=== PATIENT | female | born 1950 | race Caucasian/White ===

== ENCOUNTER 2024-10-13 13:34 | Observation (INO) ==
[2024-10-13] MEDS: 0.9 % SODIUM CHLORIDE 1000 ML 1,000 ML IV ONE (14:13)
[2024-10-13] MEDS: MECLIZINE HCL 25 MG TABLET PO ONE (14:13)
[2024-10-13 14:24] LABS: Basophils #(Absolute) Auto 0.0 (0.0-0.1); Basophils%(Percent) Auto 0.5 (0.1-0.85); Eosinophils#(Absolute)Auto 0.1 (0.0-0.2); Eosinophils%(Percent) Auto 0.9 % (0.4-2.8); Granulocytes % - Auto 70.6 % (47.8-71.3); Granulocytes#(Absolute)- Auto 4.3 (2.3-6.0); Hematocrit 42.8 % (35.9-46.7); Mean Corpuscular Volume 90.9 fl (81.0-93.7); Monocytes #(Absolute)- Auto 0.4 (1.1-3.1); Monocytes %(Percent)- Auto 5.7 % (3.6-9.8); Platelet Count 204 K/uL (152-353); White Blood Count 6.1 K/uL (4.3-9.3)
[2024-10-13 14:30] LABS: PH BODY FLUID EXCP BLOOD 5.0 (5 - 9)
[2024-10-13 14:36] LABS: Carbon Dioxide 29.0 mmol/L (21-32); Glucose 86.0 mg/dL (70-110); Potassium 4.0 mmol/L (3.6-5.2); Sodium 138.0 mmol/L (136-145)
--- NOTE | 2024-10-13 16:07 | Emergency Department Note ---
HPI - Dizziness General Chief Complaint: Syncope Stated Complaint: Passed Out Time Seen by Provider: 10/13/24 14:01 Source: patient and family Mode of arrival: walk-in History of Present Illness HPI Narrative: 74-year-old female patient presents conscious alert and oriented x 4 to the ER complaining of a syncopal episode that happened today. Patient states she bent over to check on her grandbaby when she stood up she had a syncopal episode causing her to fall to the ground. Denies any injury or trauma from the syncopal episode. Denies any chest pain or shortness of breath. Patient states that this is actually the second time she has had a syncopal episode in the past week. Sunday she had a syncopal episode after being outside in the heat for most of the day watching a ball game. Patient denies any injury or trauma for that either MD elicited complaint: Reports dizziness and other (syncope) Pertinent past history: Reports syncope; Denies BPPV, inner ear problems, stroke or recent head injury Onset (ago): week(s) (1) Timing: Reports sudden onset Severity: mild Description: Reports lightheadedness Context: Denies change in medication or change in body position History of similar symptoms: Yes Exacerbating factors: Reports movement/ambulation Relieving factors: Reports rest Associated symptoms: Reports denies other symptoms Related Data Allergies Allergy/AdvReac Type Severity Reaction Status Date / Time codeine Allergy Unknown Verified 10/13/24 13:47 Review of Systems Status of ROS 10 or more systems reviewed and unremark able except as noted in history and below Neurological Reports: dizziness and other (syncope) PFSH PFSH Medical History History of hiatal hernia Arthritis Anxiety HTN (hypertension) High cholesterol Surgical History History of cholecystectomy Social History Smoking status: never smoker Within the past year, how often did you have a drink containing alcohol: never Score interpretation: A score less than 3 is consistent with normal alcohol consumption. Non-prescribed substance use: denies use Exam Constitutional: normal general appearance, no apparent distress and average body habitus Vital Signs - 24 hr 10/13/24 13:38 10/13/24 13:38 10/13/24 14:09 Temperature 98.7 F Pulse Rate 70 Pulse Rate [orthos tatic lying] 75 Pulse Rate [orthos tatic sitting] 70 Pulse Rate [orthos tatic standing] 82 Respiratory Rate 18 Blood Pressure 124/77 Blood Pressure [or thostatic lying] 120/75 Blood Pressure [or thostatic sitting] 124/77 Blood Pressure [or thostatic standing Right Arm] 122/79 122/79 Pulse Oximetry Oxygen Delivery Me thod Room Air 10/13/24 14:25 10/13/24 14:45 10/13/24 15:00 Temperature Pulse Rate 61 61 64 Pulse Rate [orthos tatic lying] Pulse Rate [orthos tatic sitting] Pulse Rate [orthos tatic standing] Respiratory Rate 18 18 18 Blood Pressure 119/93 127/70 128/80 Blood Pressure [or thostatic lying] Blood Pressure [or thostatic sitting] Blood Pressure [or thostatic standing Right Arm] Pulse Oximetry 98 98 98 Oxygen Delivery Me thod Room Air Room Air Room Air 10/13/24 15:30 Temperature Pulse Rate 58 L Pulse Rate [orthos tatic lying] Pulse Rate [orthos tatic sitting] Pulse Rate [orthos tatic standing] Respiratory Rate 18 Blood Pressure 134/66 Blood Pressure [or thostatic lying] Blood Pressure [or thostatic sitting] Blood Pressure [or thostatic standing Right Arm] Pulse Oximetry 98 Oxygen Delivery Me thod Room Air HENMT: normocephalic and head/scalp atraumatic Eyes: PERRL Neck/C-Spine: visual inspection normal, trachea midline and cervical spine nontender Lymph: no lymphadenopathy noted and no lymphedema noted Chest: inspection of chest normal and palpation of chest normal Respiratory: breath sounds equal bilaterally, normal respiratory effort and clear to auscultation bilaterally Cardiovascular: normal heart rate noted and regular rhythm noted Gastrointestinal: abdomen normal to inspection Genitourinary: no CVA tenderness Back/Pelvis: spine normal to inspection Extremities: normal to inspection Neurology: fuel manager II-XII intact and no movement abnormality noted Psychiatry: mental status grossly normal and oriented x3 Skin: skin color normal Course Course Hospital Course: Patient was evaluated in the ER found to be in no acute distress breathsounds are clear and equal bilaterally. Abdomen soft and nontender on palpation. Normoactive bowel sounds. No rigidity or distention is noted. EKG shows a normal sinus rhythm. Heart rate of 62. No ectopy noted. CT head shows no acute intercranial findings. [place]-Hallpike maneuver is negative. NIH stroke scale is negative. Orthostatics were negative. Patient was given 1 L normal saline IVP. Examination is unremarkable. I am concerned that the patient's had 2 syncopal episodes in the past week. I discussed with the patient the desire to admit for further evaluation and treatment which family and patient have agreed. I have consulted with Renae Willett nurse practitioner who is agreed to admit the patient for further evaluation and treatment. Vital Signs Vital signs: Vital Signs Temperature 98.7 F 10/13/24 13:38 Pulse Rate 70 10/13/24 13:38 Respiratory Rate 18 10/13/24 13:38 Blood Pressure 124/77 10/13/24 13:38 Oxygen Delivery Method Room Air 10/13/24 13:38 Temperature 98.7 F 10/13/24 13:38 Pulse Rate 58 L 10/13/24 15:30 Respiratory Rate 18 10/13/24 15:30 Blood Pressure 134/66 10/13/24 15:30 Pulse Oximetry 98 10/13/24 15:30 Oxygen Delivery Method Room Air 10/13/24 15:30 Discharge Plan Discharge Patient Disposition: Admitted As Observation Condition: Stable Clinical Impression: Syncope Time of Disposition: 16:06
--- NOTE | 2024-10-13 16:30 | History & Physical Report ---
H&P: HPI History of Present Illness Chief complaint: Passed Out Narrative: Ms. Don was admitted on 10/13/24 from the ED after syncopal episode at home. She states that she experiences dizziness predominatly in the morning and occasionally on movement when leaning over. Symptoms began when she contracted RSV in June. She has had an ongoing cough since then, vomited last week. Otherwise no symptoms. She is to see pulmonology tomorrow concerning lung nodules found months ago on CT scan. Review of Systems Status of ROS 10 or more systems reviewed and unremark able except as noted in history and below Respiratory Reports: cough Neurological Reports: dizziness and other (syncope) [facility] Medical History (Updated 10/13/24 @ 16:33 by Yan Willett NP) Syncope History of hiatal hernia Arthritis Anxiety HTN (hypertension) High cholesterol Surgical History History of cholecystectomy Social History Smoking status: never smoker Within the past year, how often did you have a drink containing alcohol: never Score interpretation: A score less than 3 is consistent with normal alcohol consumption. Non-prescribed substance use: denies use Meds Home Medications and Allergies Home Medications Medication Instructions Recorded Confirmed Type atorvastatin 20 mg tablet 20 mg PO DAILY 10/13/2409/16 History celecoxib 200 mg capsule (Celebrex) 200 mg PO DAILY 10/13/24 History citalopram 40 mg tablet 40 mg PO DAILY 10/13/2409/16 History levocetirizine 5 mg tablet 5 mg PO BEDTIME 10/13/24 History lorazepam 0.5 mg tablet (Ativan) 0.5 mg PO BEDTIME 10/13/24 History olmesartan 40 mg tablet (Benicar) 40 mg PO DAILY 10/1310/13/24 History Allergies Allergy/AdvReac Type Severity Reaction Status Date / Time codeine Allergy Unknown Verified 10/13/24 13:47 Exam Constitutional: normal general appearance, no apparent distress and average body habitus Vital Signs - 24 hr 10/13/24 13:38 10/13/24 13:38 10/13/24 14:09 Temperature 98.7 F Pulse Rate 70 Pulse Rate [orthos tatic lying] 75 Pulse Rate [orthos tatic sitting] 70 Pulse Rate [orthos tatic standing] 82 Respiratory Rate 18 Blood Pressure 124/77 Blood Pressure [or thostatic lying] 120/75 Blood Pressure [or thostatic sitting] 124/77 Blood Pressure [or thostatic standing Right Arm] 122/79 122/79 Pulse Oximetry Oxygen Delivery Me thod Room Air 10/13/24 14:25 10/13/24 14:45 10/13/24 15:00 Temperature Pulse Rate 61 61 64 Pulse Rate [orthos tatic lying] Pulse Rate [orthos tatic sitting] Pulse Rate [orthos tatic standing] Respiratory Rate 18 18 18 Blood Pressure 119/93 127/70 128/80 Blood Pressure [or thostatic lying] Blood Pressure [or thostatic sitting] Blood Pressure [or thostatic standing Right Arm] Pulse Oximetry 98 98 98 Oxygen Delivery Nc thod Room Air Room Air Room Air 10/13/24 15:30 Temperature Pulse Rate 58 L Pulse Rate [orthos tatic lying] Pulse Rate [orthos tatic sitting] Pulse Rate [orthos tatic standing] Respiratory Rate 18 Blood Pressure 134/66 Blood Pressure [or thostatic lying] Blood Pressure [or thostatic sitting] Blood Pressure [or thostatic standing Right Arm] Pulse Oximetry 98 Oxygen Delivery Me thod Room Air HENMT: normocephalic and head/scalp atraumatic Eyes: PERRL Neck/C-Spine: visual inspection normal, trachea midline and cervical spine nontender Lymph: no lymphadenopathy noted and no lymphedema noted Chest: inspection of chest normal and palpation of chest normal Respiratory: breath sounds equal bilaterally, normal respiratory effort and clear to auscultation bilaterally Cardiovascular: normal heart rate noted and regular rhythm noted Gastrointestinal: abdomen normal to inspection Genitourinary: no CVA tenderness Back/Pelvis: spine normal to inspection Extremities: normal to inspection Neurology: community specialist II-XII intact and no movement abnormality noted Psychiatry: mental status grossly normal and oriented x3 Skin: skin color normal Assessment and Plan Assessment and Plan (1) Syncope: Code(s): R55 - Syncope and collapse Plan Admit Telemetry VS Q4 w/ neuro check antivert 25mg po q8hrs CBC CMP in AM Results Labs Labs: CBC 10/13/24 Range/Units 14:18 WBC 6.1 (4.3-9.3) K/uL RBC 4.7 (4.00-5.50) M/uL Hgb 14.0 (12.5-15.8) gm/dL Hct 42.8 (35.9-46.7) % Plt Count 204 (152-353) K/uL Gran % 70.6 (47.8-71.3) % Lymph % (Auto) 22.3 (20.0-43.0) % [place] % (Auto) 5.7 (3.6-9.8) % Eos % (Auto) 0.9 (0.4-2.8) % Baso % (Auto) 0.5 (0.1-0.85) Lymph # (Auto) 1.4 (1.1-3.1) [place] # (Auto) 0.4 L (1.1-3.1) Eos # (Auto) 0.1 (0.0-0.2) Baso # (Auto) 0.0 (0.0-0.1) Absolute Gran (auto) 4.3 (2.3-6.0) CMP 10/13/24 14:18 Sodium 138 Potassium 4.0 Chloride 104.0 Carbon Dioxide 29 BUN 11 Creatinine 1.1 Glucose 86 Calcium 8.6 Liver Function 10/13/24 Range/Units 14:18 Total Bilirubin 0.91 (0.0-1.0) mg/dL AST 14 L (15-37) U/L ALT 17 L (30-65) U/L Alkaline Phosphatase 91 (50-136) U/L Albumin 3.7 (3.4-5.0) g/dL Urine 10/13/24 14:18 Urine Color Yellow Urine Appearance Clear Ur Specific [place] 1.030 Urine Protein Negative Urine Glucose (UA) Normal Imaging Imaging ordered: CT scan - head Radiologist's impression: ient: Danette Don MR#: [id number] : 1950 Acct:[id number] Age/Sex: 74 / F ADM Date: 10/13/24 Loc: ED Attending Dr: Ordering Physician: Rohan Patino NP Date of Service: 10/13/24 Procedure(s): CT head/brain wo con Accession Number(s): [id number] cc: Rohan Patino EMPLOYMENT CLERK; Andre,Frankie C~ EXAM: CT HEAD/BRAIN WO CON HISTORY: vertigovertigo; COMPARISON: None. TECHNIQUE: Noncontrast CT of the head with multi planar reconstruction FINDINGS: Age-related cortical volume loss with commensurate ventricular dilatation Patchy periventricular, subcortical and deep capsular white matter hypodensities reflective of chronic small-vessel ischemic change. An old lacunar infarction i s suspected within the left external capsule. No acute stage, large artery territorial infarction is identified No intracranial hemorrhage or extra-axial fluid collection. No mass effect, midline shift or cerebral edema pattern Attention to the posterior fossa reveals no evidence of cerebellar edema or mass effect upon the 4th ventricle. There is evidence of atherosclerosis within the vertebral arteries and cavernous ICA segments. The bony IAC landmarks are symmetric. The cerebellar tonsils are normal in position. No suprasellar asymmetry is identified. IMPRESSION: No acute intracranial abnormalities Age-related involutional changes of the brain parenchyma and chronic small- vessel ischemic changes of the deep white matter tracts THIS IS AN ELECTRONICALLY VERIFIED FINAL REPORT 10/13/2024 2:30 PM - Electronically signed by Clyde Shelby MD Dictated By: Clyde Shelby MD Signed By:
[2024-10-13] MEDS ORDERED: MAGNESIUM, ALUMINUM HYDROXIDE 30 ML ORAL.SUSP PO PRN (17:20)
[2024-10-13] MEDS ORDERED: MAGNESIUM HYDROXIDE 400 MG/5 ML ORAL.SUSP PO PRN (17:20)
[2024-10-13] MEDS ORDERED: ONDANSETRON HCL/PF 4 MG/2 ML VIAL INJ PRN (17:20)
[2024-10-13] MEDS ORDERED: ACETAMINOPHEN 500 MG TABLET PO PRN (17:20)
[2024-10-13] MEDS ORDERED: DOCUSATE SODIUM 100 MG CAPSULE PO PRN (17:20)
[2024-10-13] MEDS: 0.9 % SODIUM CHLORIDE 1000 ML 1,000 ML IV SCH ×2 (18:31→18:35)
[2024-10-13] MEDS: FLUTICASONE 50 MCG NASAL 1 SPRAY.SUSP NAS SCH (20:09)
[2024-10-13] MEDS ORDERED: NON-FORMULARY MEDICATION 1 EACH (Levocetirizine 5 mg tablet) PO SCH (21:00)
[2024-10-14 04:41] LABS: Basophils #(Absolute) Auto 0.0 (0.0-0.1); Basophils%(Percent) Auto 0.6 (0.1-0.85); Eosinophils#(Absolute)Auto 0.1 (0.0-0.2); Eosinophils%(Percent) Auto 2.7 % (0.4-2.8); Granulocytes % - Auto 47.8 % (47.8-71.3); Granulocytes#(Absolute)- Auto 2.1 (2.3-6.0); Hematocrit 37.1 % (35.9-46.7); Mean Corpuscular Volume 90.3 fl (81.0-93.7); Monocytes #(Absolute)- Auto 0.3 (1.1-3.1); Monocytes %(Percent)- Auto 6.5 % (3.6-9.8); Platelet Count 183 K/uL (152-353); White Blood Count 4.5 K/uL (4.3-9.3)
[2024-10-14 05:11] LABS: Carbon Dioxide 28.0 mmol/L (21-32); Glucose 86.0 mg/dL (70-110); Potassium 4.0 mmol/L (3.6-5.2); Sodium 143.0 mmol/L (136-145)
[2024-10-14 08:09] VITALS: RESP 16; TEMP 98.1
[2024-10-14] MEDS ORDERED: CELECOXIB 200 MG PO SCH (09:00)
[2024-10-14] MEDS: OLMESARTAN 40 MG PO SCH (09:12)
[2024-10-14] MEDS: CETIRIZINE HCL 10 MG TABLET PO SCH (09:12)
[2024-10-14] MEDS: CELECOXIB 100 MG CAPSULE PO SCH (09:12)
[2024-10-14] MEDS: PANTOPRAZOLE SODIUM 40 MG TABLET.DR PO SCH (09:12)
[2024-10-14] MEDS: CITALOPRAM HYDROBROMIDE 20 MG TABLET PO SCH (09:12)
[2024-10-14] MEDS: ATORVASTATIN CALCIUM 10 MG TABLET PO SCH (09:12)
--- NOTE | 2024-10-14 10:13 | Short Stay Summary ---
H&P: HPI History of Present Illness Chief complaint: Passed Out Review of Systems Status of ROS 10 or more systems reviewed and unremark able except as noted in history and below Respiratory Reports: cough Neurological Reports: dizziness and other (syncope) [facility] Medical History (Updated 10/13/24 @ 16:33 by Yan Willett NP) Syncope History of hiatal hernia Arthritis Anxiety HTN (hypertension) High cholesterol Surgical History History of cholecystectomy Social History Smoking status: never smoker Within the past year, how often did you have a drink containing alcohol: never Score interpretation: A score less than 3 is consistent with normal alcohol consumption. Non-prescribed substance use: denies use Problems where you live: no known problems Highest level of school completed/degree received: [employer] Meds Home Medications and Allergies Home Medications Medication Instructions Recorded Confirmed Type atorvastatin 20 mg tablet 20 mg PO DAILY 10/13/2409/16 History celecoxib 200 mg capsule (Celebrex) 200 mg PO DAILY 10/13/24 History citalopram 40 mg tablet 40 mg PO DAILY 10/13/2409/16 History levocetirizine 5 mg tablet 5 mg PO BEDTIME 10/13/24 History lorazepam 0.5 mg tablet (Ativan) 0.5 mg PO BEDTIME 10/13/24 History olmesartan 40 mg tablet (Benicar) 40 mg PO DAILY 10/1310/13/24 History Allergies Allergy/AdvReac Type Severity Reaction Status Date / Time codeine Allergy Unknown Verified 10/13/24 13:47 Exam Constitutional: Vital Signs - 24 hr 10/13/24 13:38 10/13/24 13:38 10/13/24 14:09 Temperature 98.7 F Pulse Rate 70 Pulse Rate [Right] Pulse Rate [orthos tatic lying] 75 Pulse Rate [orthos tatic sitting] 70 Pulse Rate [orthos tatic standing] 82 Respiratory Rate 18 Blood Pressure 124/77 Blood Pressure [Ri ght Arm] Blood Pressure [or thostatic lying] 120/75 Blood Pressure [or thostatic sitting] 124/77 Blood Pressure [or thostatic standing Right Arm] 122/79 122/79 Pulse Oximetry Oxygen Delivery Me thod Room Air 10/13/24 14:25 10/13/24 14:45 10/13/24 15:00 Temperature Pulse Rate 61 61 64 Pulse Rate [Right] Pulse Rate [orthos tatic lying] Pulse Rate [orthos tatic sitting] Pulse Rate [orthos tatic standing] Respiratory Rate 18 18 18 Blood Pressure 119/93 127/70 128/80 Blood Pressure [Ri ght Arm] Blood Pressure [or thostatic lying] Blood Pressure [or thostatic sitting] Blood Pressure [or thostatic standing Right Arm] Pulse Oximetry 98 98 98 Oxygen Delivery Me thod Room Air Room Air Room Air 10/13/24 15:30 10/13/24 15:46 10/13/24 17:00 Temperature Pulse Rate 58 L 60 Pulse Rate [Right] Pulse Rate [orthos tatic lying] Pulse Rate [orthos tatic sitting] Pulse Rate [orthos tatic standing] Respiratory Rate 18 18 Blood Pressure 134/66 131/62 Blood Pressure [Ri ght Arm] Blood Pressure [or thostatic lying] Blood Pressure [or thostatic sitting] Blood Pressure [or thostatic standing Right Arm] Pulse Oximetry 98 98 Oxygen Delivery Ak thod Room Air Room Air Room Air 10/13/24 17:13 10/13/24 19:43 10/13/24 20:00 Temperature 97.4 F L 97.4 F L Pulse Rate 60 Pulse Rate [Right] 90 90 Pulse Rate [orthos tatic lying] Pulse Rate [orthos tatic sitting] Pulse Rate [orthos tatic standing] Respiratory Rate 18 18 18 Blood Pressure 131/62 Blood Pressure [Ri ght Arm] 127/74 127/74 Blood Pressure [or thostatic lying] Blood Pressure [or thostatic sitting] Blood Pressure [or thostatic standing Right Arm] Pulse Oximetry 98 95 95 Oxygen Delivery Me thod Room Air 10/14/24 00:12 10/14/24 04:00 10/14/24 08:00 Temperature 98.0 F 97.6 F 98.1 F Pulse Rate Pulse Rate [Right] 93 H 54 L 65 Pulse Rate [orthos tatic lying] Pulse Rate [orthos tatic sitting] Pulse Rate [orthos tatic standing] Respiratory Rate 18 18 16 Blood Pressure Blood Pressure [Ri ght Arm] 114/60 121/67 131/74 Blood Pressure [or thostatic lying] Blood Pressure [or thostatic sitting] Blood Pressure [or thostatic standing Right Arm] Pulse Oximetry 93 L 98 95 Oxygen Delivery Me thod Room Air Room Air 10/14/24 08:25 Temperature Pulse Rate Pulse Rate [Right] Pulse Rate [orthos tatic lying] 65 Pulse Rate [orthos tatic sitting] 76 Pulse Rate [orthos tatic standing] 84 Respiratory Rate Blood Pressure Blood Pressure [Ri ght Arm] Blood Pressure [or thostatic lying] 131/74 Blood Pressure [or thostatic sitting] 134/76 Blood Pressure [or thostatic standing Right Arm] 123/82 Pulse Oximetry Oxygen Delivery Me thod Assessment and Plan Assessment and Plan (1) Syncope: Code(s): R55 - Syncope and collapse Plan Admit Telemetry VS Q4 w/ neuro check antivert 25mg po q8hrs CBC CMP in AM Results Labs Labs: CBC 10/13/24 10/14/24 Range/Units 14:18 04:00 WBC 6.1 4.5 (4.3-9.3) K/uL RBC 4.7 4.1 (4.00-5.50) M/uL Hgb 14.0 12.5 (12.5-15.8) gm/dL Hct 42.8 37.1 (35.9-46.7) % Plt Count 204 183 (152-353) K/uL Gran % 70.6 47.8 (47.8-71.3) % Lymph % (Auto) 22.3 42.4 (20.0-43.0) % [place] % (Auto) 5.7 6.5 (3.6-9.8) % Eos % (Auto) 0.9 2.7 (0.4-2.8) % Baso % (Auto) 0.5 0.6 (0.1-0.85) Lymph # (Auto) 1.4 1.9 (1.1-3.1) [place] # (Auto) 0.4 L 0.3 L (1.1-3.1) Eos # (Auto) 0.1 0.1 (0.0-0.2) Baso # (Auto) 0.0 0.0 (0.0-0.1) Absolute Gran (auto) 4.3 2.1 L (2.3-6.0) CMP 10/13/24 10/14/24 14:18 04:00 Sodium 138 143 Potassium 4.0 4.0 Chloride 104.0 111.0 H Carbon Dioxide 29 28 BUN 11 9 Creatinine 1.1 1.1 Glucose 86 86 Calcium 8.6 7.8 L Liver Function 10/13/24 10/14/24 Range/Units 14:18 04:00 Total Bilirubin 0.91 0.65 (0.0-1.0) mg/dL AST 14 L 12 L (15-37) U/L ALT 17 L 13 L (30-65) U/L Alkaline Phosphatase 91 79 (50-136) U/L Albumin 3.7 2.9 L (3.4-5.0) g/dL Urine 10/13/24 14:18 Urine Color Yellow Urine Appearance Clear Ur Specific [place] 1.030 Urine Protein Negative Urine Glucose (UA) Normal DS: Providers Provider Date of admission: 10/13/24 16:49 Primary care physician: Frankie Powell DS: Summary Hospital Course Hospital Course: Patient was evaluated in the ER found to be in no acute distress breathsounds are clear and equal bilaterally. Abdomen soft and nontender on palpation. Normoactive bowel sounds. No rigidity or distention is noted. EKG shows a normal sinus rhythm. Heart rate of 62. No ectopy noted. CT head shows no acute intercranial findings. [place]-Hallpike maneuver is n egative. NIH stroke scale is negative. Orthostatics were negative. Patient was given 1 L normal saline IVP. Examination is unremarkable. I am concerned that the patient's had 2 syncopal episodes in the past week. I discussed with the patient the desire to admit for further evaluation and treatment which family and patient have agreed. I have consulted with Renae Willett nurse practitioner who is agreed to admit the patient for further evaluation and treatment. Time Spent with Patient Time attestation: Total time spent providing and/or coordinating discharge services: Discharge Plan Discharge Condition: Stable Discharge Medications: No Action olmesartan [Benicar] 40 mg tablet 40 mg PO DAILY atorvastatin 20 mg tablet 20 mg PO DAILY celecoxib [Celebrex] 200 mg capsule 200 mg PO DAILY levocetirizine 5 mg tablet 5 mg PO BEDTIME citalopram 40 mg tablet 40 mg PO DAILY lorazepam [Ativan] 0.5 mg tablet 0.5 mg PO BEDTIME Hospital Course: Patient was evaluated in the ER found to be in no acute distress breathsounds are clear and equal bilaterally. Abdomen soft and nontender on palpation. Normoactive bowel sounds. No rigidity or distention is noted. EKG shows a normal sinus rhythm. Heart rate of 62. No ectopy noted. CT head shows no acute intercranial findings. Rog[place]io-Hallpike maneuver is negative. NIH stroke scale is negative. Orthostatics were negative. Patient was given 1 L normal saline IVP. Examination is unremarkable. I am concerned that the patient's had 2 syncopal episodes in the past week. I discussed with the patient the desire to admit for further evaluation and treatment which family and patient have agreed. I have consulted with Renae Willett nurse practitioner who is agreed to admit the patient for further evaluation and treatment. Print Language: Indonesian Follow-Ups: Frankie Powell [Primary Care Provider, Medical]
[2024-10-14 12:09] VITALS: BP 126/74; PULSE 58
--- NOTE | 2024-10-19 22:02 | Discharge Summary ---
DS: Providers Provider Date of admission: 10/13/24 16:49 Primary care physician: Sandy Rivas NP DS: Diagnosis Discharge Diagnosis (1) Syncope: Assessment and plan: 1. Discharge home 2. UA negative 3. CT head results as below 4. Carotid artery ultrasound prior to discharge, pending 5. Repeat EKG prior to discharge 6. Recommend echocardiogram as outpatient; unable to complete as inpatient today 7. Referral to Dr. Keane (cardiology) in [place] for further cardiac evaluation and Holter monitor 8. Monitor BP, HR, and any future syncopal episodes; keep a log to take to cardiology appointment 9. Maintain adequate fluid intake, especially when outside in the heat 10. Change positions slowly, especially when transitioning from lying down or sitting to standing 11. Follow-up with PCP in 1 week 12. Continue Levocetirizine, add Flonase for home DS: Summary Hospital Course Hospital Course: Mrs. Don is a 74 year old female that was admitted on 10/13/24 from the ER after experiencing a syncopal episode at home. She has a medical history of HTN, hyperlipidemia, anxiety, and arthritis. Denies tobacco, alcohol, or illicit drug use. Patient states she bent over to check on her grandchild and when she stood up, she had a syncopal episode causing her to fall to the ground. Denies any injury or trauma from the syncopal episode. This was the second syncopal episode in the past week. She had a syncopal episode Sunday after being outside in the heat for most of the day watching a ball game. She was diagnosed with RSV in June and reports she's been experiencing intermittent dizziness and near syncope since then. She has also had an ongoing cough since then. She reports she vomited last week, otherwise no symptoms. Patient was evaluated in the ER and found to be in no acute distress. EKG showed a normal sinus rhythm with a heart rate of 62, no ectopy noted. CT head revealed no acute intracranial findings. Rogelio-Hallpike maneuver was negative. NIH stroke scale negative. Orthostatics were negative. Examination unremarkable in ER. Patient was given 1 L normal saline IV and admitted overnight for further evaluation and treatment. Hospital course uneventful. Patient received supportive management with IV hydration, Zofran and Meclizine as needed, and repeat labs. Patient states that she is ready to be discharged home as she has an appointment scheduled with pulmonology this afternoon at 3pm in [place] concerning lung nodules found months ago on CT scan. Patient will be discharged home to attend pulmonology follow-up this afternoon. She has been instructed to follow-up with PCP in 1 week. Referral has been sent to Dr. Keane (cardiology) in [place] per patient request. Recommend echo as outpatient. Patient informed of treatment plan, diagnostic testing and results, and discharge instructions. At this time, patient has met all discharge goals and no longer necessitates hospitalization. Appropriate disposition arrangements and follow-up care have been made, and follow-up care has been coordinated. The patient has been instructed to return to ER if symptoms persist or worsens. Status at Discharge Functional status at discharge: independent ambulation Overall status at discharge: patient is back to baseline Time Spent with Patient Time attestation: Total time spent providing and/or coordinating discharge services: 35 minutes Time spent: greater than 30 minutes Exam Exam: Received lying awake in bed in no acute distress. She is alert and oriented to person, place, time, and situation. She is able to make needs of self known. Denies dyspnea, chest pain, or palpitations. Patient reports she was diagnosed with RSV in June and has experienced intermittent episodes of dizziness and near syncope since then. She has had 2 syncopal episodes in the past week. She reports the first episode occurred on Sunday at a ball game and states, "I don't think I got too hot because it happened when I was getting out of one car and into another." She denies that dizziness is exacerbated by position changes as she feels like it occurs at rest as well. Constitutional: normal general appearance, no apparent distress, average body habitus, no limitations and alert HENMT: normocephalic, head/scalp atraumatic, hearing grossly normal bilaterally and external ears normal Eyes: PERRL, EOMs intact bilaterally, conjunctivae normal, no scleral icterus, normal visual leal by confrontation and no nystagmus Neck/C-Spine: visual inspection normal and trachea midline Lymph: no lymphadenopathy noted Chest: inspection of chest normal and palpation of chest normal Respiratory: breath sounds equal bilaterally, normal respiratory effort, clear to auscultation bilaterally, no wheezes, no rales, no retractions, no use of ac cessory muscles and chest percussion normal Cardiovascular: normal heart rate noted, regular rhythm noted, no gallop, no rub, no murmur, no JVD and peripheral pulses 2+ throughout Gastrointestinal: abdomen normal to inspection, abdomen soft to palpation, nontender to palpation, nontender to percussion, nondistended and normoactive bowel sounds Genitourinary: no CVA tenderness and bladder normal to palpation Back/Pelvis: spine normal to inspection Extremities: normal to inspection, normal to palpation, no tenderness and full ROM Neurology: cook helper fruit II-XII intact, no movement abnormality noted, no focal motor deficit noted, no sensory deficits noted, gait normal, speech normal, coordination normal, no pronator drift noted and GCS normal Psychiatry: Mental Status Exam documented within this Exam's Psych section mental status grossly normal, oriented x3, thought process normal, cooperative, affect normal, psychomotor activity normal and memory normal Feel stressed/te nse/nervous/anxious/difficulty sleeping: not at all Skin: skin color normal and skin turgor normal DS: Data Data Completed and Pending Pending studies at discharge: Carotid artery ultrasound Imaging CT scan - head: Attestation: I have reviewed the pertinent imaging results. Radiologist's impression: FINDINGS: Age-related cortical volume loss with commensurate ventricular dilatation Patchy periventricular, subcortical and deep capsular white matter hypodensities reflective of chronic small-vessel ischemic change. An old lacunar infarction is suspected within the left external capsule. No acute stage, large artery territorial infarction is identified No intracranial hemorrhage or extra-axial fluid collection. No mass effect, midline shift or cerebral edema pattern Attention to the posterior fossa reveals no evidence of cerebellar edema or mass effect upon the 4th ventricle. There is evidence of atherosclerosis within the vertebral arteries and cavernous ICA segments. The bony IAC landmarks are symmetric. The cerebellar tonsils are normal in position. No suprasellar asymmetry is identified. IMPRESSION: No acute intracranial abnormalities Age-related involutional changes of the brain parenchyma and chronic small- vessel ischemic changes of the deep white matter tracts Discharge Plan Discharge Disposition: Home, Self-Care Condition: Stable Discharge Medications: New fluticasone propionate 50 mcg/actuation [place],Suspension 2 spray intranasal DAILY Qty: 1 0RF Continued olmesartan [Benicar] 40 mg tablet 40 mg PO DAILY atorvastatin 20 mg tablet 20 mg PO DAILY celecoxib [Celebrex] 200 mg capsule 200 mg PO DAILY levocetirizine 5 mg tablet 5 mg PO BEDTIME citalopram 40 mg tablet 40 mg PO DAILY lorazepam [Ativan] 0.5 mg tablet 0.5 mg PO BEDTIME Discharge Orders: Discharge Order (Routine); Ordered 10/14/24 Ordered By: Maryse Mathew Activity: resume usual activities as tolerated Diet: advance to your usual diet Interventions: Discharge Assessment Last Done: 10/14/24 12:00 MED/SURG & ICU Observation Charge Sheet Last Done: 10/14/24 12:02 Patient Instructions: Syncope (ED) Activity Restrictions/Additional Instructions: FOLLOW-UP WITH PRIMARY CARE CONTINUE WITH ROUTINE HOME MEDICATIONS MONITOR BLOOD PRESSURE AND HEART RATE AND KEEP A LOG RECOMMEND ECHO OUTPATIENT Forms: Portal/Health Info Access Inst Follow-Ups: Sandy Rivas NP [Primary Care Provider, Medical] Referral Note: Follow up in 1 week. Minh Keane MD [Referring, Cardiology] Referral Note: Follow up for further cardiac evaluation and holter monitor. Discharge Date/Time: 10/14/24 12:30
== END 2024-10-14 12:30 | disposition home or self-care (01) ==
LOC: MS 13:34 → ED 13:34 → MS 17:15
PROVIDERS: ADMIT Nurse Practitioner Family; ATTEND Nurse Practitioner